=== PATIENT | female | born 1995 | race African-American/Black ===

== ENCOUNTER 2017-09-17 14:28 | Emergency (ER) | payer OTHER ==
[2017-09-17 14:41] VITALS: BP 104/69
--- NOTE | 2017-09-17 15:58 | UC ---
Lower Extremity/Ankle HPI - HPI Summary HPI Summary: 21 y/o female presents to the urgent care c/o lateral side of RT foot pain radiating to her lower leg since last 09/14/2017. Pt states pain is dull 3-4/10, but exacerbate w/ movement or dancing. Pt can't recall any injury. She has taking Aleve to alleviate symptoms. Pt denies numbness or tingling sensation, calf pain, SOB, chest pain, abdominal pain, N/V/D. - History of Current Complaint Chief Complaint: UCLowerExtremity Stated Complaint: FOOT INJURY Time Seen by Provider: 09/17/17 15:56 Hx Obtained From: Patient Hx Last Menstrual Period: 09/06/2017 ?: No - Pt declines test Onset/Duration: Gradual Onset, Lasting Days - 4 days, Still Present Severity Initially: Mild Severity Currently: Mild Pain Intensity: 4 Pain Scale Used: 0-10 Numeric Aggravating Factor(s): Ambulation Alleviating Factor(s): Rest, OTC Meds Able to Bear Weight: Yes - Risk Factors Gout Risk Factors: Negative DVT Risk Factors: Negative Septic Arthritis Risk Factor: Negative - Allergies/Home Medications Allergies/Adverse Reactions: Allergies Allergy/AdvReac Type Severity Reaction Status Date / Time No Known Allergies Allergy Verified 09/17/17 14:41 PMH/Surg Hx/FS Hx/Imm Hx Previously Healthy: Yes - Pt denies PMHX - Surgical History Surgical History: None - Family History Known Family History: Positive: Hypertension, Diabetes - Social History Occupation: Employed Full-time Lives: With Family Alcohol Use: Occasionally Substance Use Type: None Smoking Status (MU): Never Smoked Tobacco Review of Systems Constitutional: Negative Skin: Negative Eyes: Negative ENT: Negative Respiratory: Negative Cardiovascular: Negative Gastrointestinal: Negative Genitourinary: Negative Motor: Negative Neurovascular: Negative Musculoskeletal: Decreased ROM - RT foot, Other: - RT foot pain Neurological: Negative Psychological: Negative Is Patient Immunocompromised?: No All Other Systems Reviewed And Are Negative: Yes Physical Exam - Summary Physical Exam Summary: Vital Signs Reviewed: Yes General : well developed, well nourished female w/o any apparent distress Eyes: Positive: Conjunctiva Clear - PERRLA, EOMI ENT: Positive: Normal ENT inspection, Hearing grossly normal, Pharynx normal, TMs normal Neck: Positive: Supple, Nontender, No Lymphadenopathy Respiratory: Positive: Chest non-tender, Lungs clear, Normal breath sounds, No respiratory distress Cardiovascular: Positive: RRR, No Murmur, Pulses Normal Abdomen Description: Positive: Nontender, No Organomegaly, Soft. Negative: CVA Tenderness (R), CVA Tenderness (L) Bowel Sounds: Positive: Present Musculoskeletal: Positive: Strength Intact, ROM Intact, No Edema, RT Foot/Toes: Pt is able to bear weight but ambulate with mild limping. RT foot :No surface trauma, ecchymosis, erythema, lesions, ulcers or break in skin integrity. The R foot is without obvious asymmetry or deformity when compared to the L foot. No bony step-off, No tenderness to palpation over toes, point tenderness over the lateral side of mid foot and base of the 4th and 5th metatarsal and sole at the same level, no tenderness of hindfoot, Decrease plantar/dorsiflexion, inversion/eversion due to pain. Distal motor and neurovascular status are intact. Neurological Exam: Normal Psychological Exam: Normal Skin Exam: Normal Triage Information Reviewed: Yes Vital Signs: Initial Vital Signs Temp 98.4 F 09/17/17 14:37 Pulse 80 09/17/17 14:37 Resp 20 09/17/17 14:37 BP 104/69 09/17/17 14:37 Pulse Ox 100 09/17/17 14:37 Lower Extremity Course/Dx - Course Course Of Treatment: 21 y/o female presents to the urgent care c/o lateral side of RT foot pain radiating to her lower leg since last 09/14/2017. Pt states pain is dull 3-4/10, but exacerbate w/ movement or dancing. Pt can't recall any injury. She has taking Aleve to alleviate symptoms. Pt denies numbness or tingling sensation, calf pain, SOB, chest pain, abdominal pain, N/V/ D.Hx obtained. RT foot X-ray ordered, Impression:There was no fracture, dislocation, soft tissue swelling or FB noted. Probably plantar fasciitis or tendonitis. Pt's foot immobilized with rashaun-bandage and given a post-op shoe to avoid flexion. Advised RICE, and Rx Ibuprofen PO for pain, If not improvement of symptoms to f/u with Orthopedic DR referral for further evaluation and treatment. Pt understood and agreed with D/C instructions - Differential Dx/Diagnosis Differential Diagnosis/HQI/PQRI: Contusion, Fracture (Closed), Sprain, Strain, Tendonitis Provider Diagnoses: 1- RT foot pain. 2- RT foot sprain Discharge - Sign-Out/Discharge Documenting (check all that apply): Discharge/Admit/Transfer - D/C home - Discharge Plan Condition: Stable Disposition: HOME Prescriptions: Ibuprofen TAB* [Motrin TAB* 600 MG] 600 mg PO Q6H PRN #30 tab PRN Reason: Pain Patient Education Materials: Foot Sprain (ED), Tendinitis (ED) Referrals: [facility] [Outside] - 1 Week Jose Ricks MD [Medical Doctor] - 1 Week Additional Instructions: 1-Please take Ibuprofen PO q6-8hr as directed to alleviate pain and swelling. 2-Please apply ice, keep your foot immobilized with the Rashaun bandage and post-op she to avoid flexion. Avoid strenuous exercise or standing for long periods of time. use the crutches 3- Please f/u with your PCP or Othropedic Dr Ricks in 1 week if not improvement of symptoms for further evaluation and treatment. - Billing Disposition and Condition Condition: STABLE Disposition: Home
--- NOTE | 2017-09-17 16:40 | RAD ---
INDICATION: Acute plantar foot pain COMPARISON: None. TECHNIQUE: 3 views of the right foot were obtained. FINDINGS: The adequately corticated bones are properly aligned. Joint spaces appear maintained. No fracture, dislocation or focal bony abnormality is seen. IMPRESSION: Normal radiograph of the right foot. If the patient's symptoms persist, follow-up imaging is recommended.
== END 2017-09-17 17:35 | disposition home or self-care (01) ==
LOC: UCEAST 14:28
DX: S93.601A Unspecified sprain of right foot, initial encounter (principal); X58.XXXA Exposure to other specified factors, initial encounter; Y93.9 Activity, unspecified; Y92.9 Unspecified place or not applicable; Z82.49 Family history of ischemic heart disease and other diseases of the circulatory system; Z83.3 Family history of diabetes mellitus
CPT/HCPCS: 99203; G0463